=== PATIENT | female | born 1990 | race Caucasian/White ===

== ENCOUNTER 2018-08-20 08:45 | Emergency (ER) | payer MEDICAID ==
[~2018-08-20] VITALS: Ht 157.5 cm; Wt 113.6 kg
[~2018-08-20 08:45] MED LIST: BACI3.5O2 RIGHTEYE
[2018-08-20 08:48] VITALS: BP 130/93
[2018-08-20] MEDS ORDERED: dexamethasone sod phosphate 10mg/ml inj IV STA (09:02)
[2018-08-20] MEDS ORDERED: normal saline 1000ML IV soln IVB ONE (09:05)
[2018-08-20] MEDS ORDERED: LORazepam 2 mg/ml vial IV ONE (09:05)
[2018-08-20] MEDS ORDERED: metoclopramide 5 mg/ml inj IV ONE ×2 (09:05→09:35)
[2018-08-20] MEDS ORDERED: ketorolac trometh. 30mg/ml inj. IV ONE (09:05)
== END 2018-08-20 10:44 | disposition home or self-care (01) ==
LOC: ER 08:45
DX: H53.149 Visual discomfort, unspecified (principal); G43.909 Migraine, unspecified, not intractable, without status migrainosus; F11.90 Opioid use, unspecified, uncomplicated; Z90.89 Acquired absence of other organs; Z79.899 Other long term (current) drug therapy
CPT/HCPCS: 70450; 96374; 96375; 99284; J1100; J1885; J2060; J2765; J7030

== ENCOUNTER 2019-03-30 08:16 | Emergency (ER) | payer MEDICAID ==
[~2019-03-30] VITALS: Ht 157.5 cm; Wt 134.7 kg
[2019-03-30 08:39] LABS: CLARITY,URINE CLOUDY (Clear); COLOR,URINE YELLOW (Yellow); GLUCOSE, URINE NEGATIVE (Neg); KETONES,URINE NEGATIVE (Neg); LEUKOCYTE ESTERASE ,URINE SMALL (Neg); NITRITES, URINE NEGATIVE (Neg); OCCULT BLOOD,URINE LARGE (Neg); PROTEIN,URINE NEGATIVE (Neg)
[2019-03-30 08:43] LABS: UA COLLECTION TYPE CLN CATCH MIDSTREAM
[2019-03-30 08:45] LABS: BACTERIA,URINE 2+ /HPF (Neg); MUCUS STRANDS FEW /LPF (Neg); SQUAMOUS EPITHELIAL CELL,UR MANY /LPF (FEW); WBC,URINE 20-30 /HPF (0-4)
[2019-03-30] MEDS ORDERED: PHEN-786 PO (08:52)
[2019-03-30] MEDS ORDERED: NITR100C6 PO (08:52)
[2019-03-30 09:07] VITALS: BP 122/85
== END 2019-03-30 09:08 | disposition home or self-care (01) ==
LOC: ER 08:16
DX: N39.0 Urinary tract infection, site not specified (principal); G43.909 Migraine, unspecified, not intractable, without status migrainosus; F11.90 Opioid use, unspecified, uncomplicated; Z86.2 Personal history of diseases of the blood and blood-forming organs and certain disorders involving the immune mechanism; Z90.89 Acquired absence of other organs; Z79.899 Other long term (current) drug therapy
CPT/HCPCS: 81001; 99283

== ENCOUNTER 2019-11-30 08:13 | Emergency (ER) | payer MEDICAID ==
[~2019-11-30] VITALS: Ht 157.5 cm; Wt 137.2 kg
[~2019-11-30 08:13] MED LIST changes: +NITR100C6 PO; +PHEN-786 PO
[2019-11-30 08:20] VITALS: BP 139/88
== END 2019-11-30 11:05 | disposition home or self-care (01) ==
LOC: ER 08:14
DX: T19.2XXA Foreign body in vulva and vagina, initial encounter (principal); N89.8 Other specified noninflammatory disorders of vagina; B37.9 Candidiasis, unspecified; G43.909 Migraine, unspecified, not intractable, without status migrainosus; F11.90 Opioid use, unspecified, uncomplicated; Z86.2 Personal history of diseases of the blood and blood-forming organs and certain disorders involving the immune mechanism; Z90.89 Acquired absence of other organs; Z79.2 Long term (current) use of antibiotics; Z79.899 Other long term (current) drug therapy; X58.XXXA Exposure to other specified factors, initial encounter; Y93.89 Activity, other specified; Y92.89 Other specified places as the place of occurrence of the external cause; Y99.8 Other external cause status
CPT/HCPCS: 99284

== ENCOUNTER 2021-01-19 12:04 | Emergency (ER) | payer MEDICAID ==
[~2021-01-19] VITALS: Ht 157.5 cm; Wt 136.0 kg
[2021-01-19 12:17] VITALS: BP 163/103
[2021-01-19 13:09] LABS: URINE HCG NEGATIVE (NEG)
[2021-01-19 13:12] LABS: CLARITY,URINE SLIGHTLY CLOUDY (Clear); GLUCOSE, URINE NEGATIVE (Neg); KETONES,URINE NEGATIVE (Neg); LEUKOCYTE ESTERASE ,URINE NEGATIVE (Neg); NITRITES, URINE NEGATIVE (Neg); OCCULT BLOOD,URINE NEGATIVE (Neg); PROTEIN,URINE NEGATIVE (Neg); UROBILINOGEN,URINE 0.2 E.U/dL (0.2-1.0)
[2021-01-19 13:23] LABS: COLOR,URINE STRAW (Yellow); UA COLLECTION TYPE CLN CATCH MIDSTREAM
[2021-01-19 14:04] LABS: MUCUS STRANDS MANY /LPF (Neg)
[2021-01-19 14:05] LABS: SQUAMOUS EPITHELIAL CELL,UR MANY /LPF (FEW)
[2021-01-19 14:06] LABS: BACTERIA,URINE 1+ /HPF (Neg); RBC,URINE 0-2 /HPF (0-2); WBC,URINE 0-4 /HPF (0-4)
[2021-01-19 14:11] LABS: AMORPHOUS PHOSPHATES 1+
== END 2021-01-19 19:17 | disposition left against medical advice (07) ==
LOC: ER 12:04
DX: N93.9 Abnormal uterine and vaginal bleeding, unspecified (principal); Z53.21 Procedure and treatment not carried out due to patient leaving prior to being seen by health care provider
CPT/HCPCS: 81001; 81025

== ENCOUNTER 2024-01-22 22:31 | Emergency (ER) | payer MEDICAID ==
[~2024-01-22] VITALS: Ht 157.5 cm; Wt 115.0 kg
[2024-01-22 23:09] LABS: BILIRUBIN,URINE NEGATIVE (Neg); CLARITY,URINE SLIGHTLY CLOUDY (Clear); COLOR,URINE YELLOW (Yellow); GLUCOSE, URINE NEGATIVE (Neg); KETONES,URINE TRACE mg/dl (Neg); LEUKOCYTE ESTERASE ,URINE NEGATIVE (Neg); NITRITES, URINE NEGATIVE (Neg); OCCULT BLOOD,URINE NEGATIVE (Neg); PROTEIN,URINE NEGATIVE (Neg); UROBILINOGEN,URINE 0.2 E.U/dL (0.2-1.0)
[2024-01-22 23:09] LABS: BASOPHILS % (AUTO) 0.6 % (0-1); EOSINOPHILS # (AUTO) 0.1 X10'3 (0-0.9); HEMATOCRIT 40.8 % (35.0-45.0); HEMOGLOBIN 13.9 g/dl (12.0-16.0); LYMPHOCYTES # (AUTO) 2.8 X10'3 (1.1-4.8); LYMPHOCYTES % (AUTO) 34.3 % (21-51); MEAN CORPUSCULAR HGB CONC 34.2 g/dL (33.0-36.5); MEAN CORPUSCULAR VOLUME 87.8 FL (78-98); MEAN PLATELET VOLUME 8.3 FL (7.4-10.4); MONOCYTES # (AUTO) 0.6 X10'3 (0-0.9); MONOCYTES % (AUTO) 7.9 % (2-12); NEUTROPHILS # (AUTO) 4.5 X10'3 (1.8-7.7); NEUTROPHILS % (AUTO) 56.2 % (42-75); PLATELET COUNT 310 X10'3 (140-440); RED BLOOD COUNT 4.64 X10'6 (4.20-5.60); RED CELL DISTRIBUTION WIDTH 13.5 % (11.5-14.5); WHITE BLOOD COUNT 8.1 X10'3 (4.5-11.0)
[2024-01-22 23:10] LABS: UA COLLECTION TYPE NON-SPECIFIED
[2024-01-22 23:20] LABS: ALBUMIN 3.9 G/DL (3.4-5.0); ANION GAP 11 (8-16); BLOOD UREA NITROGEN 14 MG/DL (7-18); BUN/CREATININE RATIO 12.4 (10.0-20.0); CALCIUM 8.7 MG/DL (8.5-10.1); CHLORIDE 109 MMOL/L (99-107); CREATININE 1.13 MG/DL (0.40-0.90); GLUCOSE 109 MG/DL (70-104); LIPASE 40 U/L (16-77); POTASSIUM 3.6 MMOL/L (3.5-5.1); SODIUM 141 MMOL/L (135-145); TOTAL CARBON DIOXIDE 20.9 MMOL/L (24-32); eCRCL 56 ML/MIN; eGFR 55 ML/MIN
[2024-01-22 23:44] LABS: BACTERIA,URINE FEW /HPF (Neg); RBC,URINE NONE SEEN /HPF (0-2); SQUAMOUS EPITHELIAL CELL,UR MODERATE /LPF (FEW); WBC,URINE 0-4 /HPF (0-4)
[2024-01-22] MEDS: normal saline 1000ML IV soln IVB ONE ×2 (23:54)
[2024-01-23] MEDS ORDERED: iohexol 300mg/ml 100ml inj. ONE (00:42)
[2024-01-23] MEDS: morphine 4 MG/ML inj SYRINge IV ONE (01:20)
[2024-01-23] MEDS: ketorolac trometh 15mg/ml vial 15 MG/ML ML IV ONE ×2 (01:23→05:06)
[2024-01-23] MEDS ORDERED: sildenafil citrate 20mg tablet PO SCH (04:15)
[2024-01-23] MEDS ORDERED: TADA5TAB2 PO (04:15)
[2024-01-23] MEDS: normal saline 1000ML IV soln IVB ONE (05:06)
[2024-01-23] MEDS: meperidine/PF 25mg/ml syringe IV ONE (05:07)
[2024-01-23] MEDS: sildenafil citrate 20mg tablet PO ONE (05:15)
[2024-01-23] MEDS: ondansetron 4mg rapidly disintigrating tab PO ONE (05:18)
[2024-01-23 05:44] VITALS: BP 121/82; PULSE 68; TEMP 98.3; O2SAT 97
[2024-01-23 06:03] VITALS: RESP 16
== END 2024-01-23 06:04 | disposition home or self-care (01) ==
LOC: ER 22:31
DX: N23 Unspecified renal colic (principal); G43.909 Migraine, unspecified, not intractable, without status migrainosus; Z79.2 Long term (current) use of antibiotics; Z79.899 Other long term (current) drug therapy; Z98.890 Other specified postprocedural states; Z90.89 Acquired absence of other organs
CPT/HCPCS: 36415; 74177; 76856; 80048; 81001; 83690; 85025; 93976; 96361; 96374; 96375; 96376; 99285; J1885; J2175; J2270; J7030; Q9967